=== PATIENT | male | born 1955 | race Asian ===

== ENCOUNTER 2016-10-11 13:41 | Inpatient (IN) | payer MEDICAID ==
[~2016-10-11] VITALS: Ht 172.7 cm; Wt 52.3 kg
[2016-10-11] VITALS (8 sets, daily range): BP systolic 133–164; BP diastolic 73–95
[2016-10-11 16:16] LABS: BLOOD UREA NITROGEN 18 mg/dL (7-18)
[2016-10-11 16:59] LABS: DIFF TOTAL CELLS COUNTED 100 CELL DIFF
[2016-10-11 17:01] LABS: ANISOCYTOSIS 2+; VERIFY COUNTS? YES
[2016-10-11 17:02] LABS: HYPOCHROMIA 1+; MICROCYTOSIS 1+; OVALOCYTES 1+; POIKILOCYTOSIS 1+; POLYCHROMASIA 1+
[2016-10-11] MEDS ORDERED: SODIUM CHLORIDE FLUSH 10ML SYR IVF PRN (17:30)
[2016-10-11] MEDS ORDERED: SODIUM CHLORIDE FLUSH 10ML SYR IVF ONE (17:30)
[2016-10-11] MEDS ORDERED: ENOXAPARIN 40 MG/0.4 ML SQ SCH (19:30)
[2016-10-11] MEDS ORDERED: TEMAZEPAM 15 MG CAPSULE PO PRN (19:30)
[2016-10-11] MEDS ORDERED: BISACODYL 10 MG SUPP PR PRN (19:30)
[2016-10-11] MEDS ORDERED: LABETALOL 5MG/ML, 20ML IV PRN (19:30)
[2016-10-12 00:44] VITALS: BP 161/85
[2016-10-12 02:00] VITALS: BP 168/66
[2016-10-12 02:12] VITALS: BP 163/87
[2016-10-12 05:14] LABS: BLOOD UREA NITROGEN 15 mg/dL (7-18)
[2016-10-12 05:43] LABS: DIFF TOTAL CELLS COUNTED 100 CELL DIFF
[2016-10-12 05:44] LABS: ANISOCYTOSIS 2+; MICROCYTOSIS 1+; VERIFY COUNTS? YES
[2016-10-12 05:45] LABS: HYPOCHROMIA 1+; POLYCHROMASIA 1+
[2016-10-12 05:46] LABS: OVALOCYTES 1+
[2016-10-12 07:34] VITALS: BP 152/84
[2016-10-12] MEDS: SENNA/DOCUSATE TABLET PO SCH (09:37)
[2016-10-12 13:19] VITALS: BP 158/82
[2016-10-12] MEDS ORDERED: GOLYTELY 4,000ML ORAL.SOL PO ONE (15:00)
[2016-10-12 20:06] VITALS: BP 166/96
[2016-10-13 04:22] VITALS: BP 158/90
[2016-10-13 05:08] LABS: BLOOD UREA NITROGEN 12 mg/dL (7-18)
[2016-10-13 05:53] LABS: DIFF TOTAL CELLS COUNTED 100 CELL DIFF
[2016-10-13 05:55] LABS: ANISOCYTOSIS 2+; HYPOCHROMIA 1+; MICROCYTOSIS 1+; POLYCHROMASIA 1+; VERIFY COUNTS? YES
[2016-10-13 05:59] LABS: OVALOCYTES 1+
[2016-10-13 07:51] VITALS: BP 157/88
[2016-10-13] MEDS: SENNA/DOCUSATE TABLET PO SCH (08:20)
[2016-10-13] MEDS ORDERED: GOLYTELY 4,000ML ORAL.SOL PO ONE (09:00)
[2016-10-13 12:58] VITALS: BP 154/88
[2016-10-13 20:12] VITALS: BP 153/91
[2016-10-14 02:49] VITALS: BP 166/91
[2016-10-14 06:26] LABS: BLOOD UREA NITROGEN 10 mg/dL (7-18)
[2016-10-14 06:52] LABS: ANISOCYTOSIS 2+; HYPOCHROMIA 1+; MICROCYTOSIS 1+; OVALOCYTES 1+; POLYCHROMASIA 1+
[2016-10-14 08:05] VITALS: BP 158/95
[2016-10-14] MEDS ORDERED: GOLYTELY 4,000ML ORAL.SOL PO ONE (09:30)
[2016-10-14] MEDS: SENNA/DOCUSATE TABLET PO SCH (10:02)
[2016-10-14 12:54] VITALS: BP 161/98
[2016-10-14 19:49] VITALS: BP 154/92
[2016-10-15 03:20] VITALS: BP 147/86
[2016-10-15 04:36] VITALS: BP 142/86
[2016-10-15 06:17] LABS: DIFF TOTAL CELLS COUNTED 100 CELL DIFF
[2016-10-15 06:26] LABS: ANISOCYTOSIS 2+; HYPOCHROMIA 1+; MICROCYTOSIS 1+; OVALOCYTES 1+; POLYCHROMASIA 1+; SCHISTOCYTES 1+; TARGET CELLS 1+; VERIFY COUNTS? YES
[2016-10-15 06:27] LABS: MONOS WITH VACUOLES 1+
[2016-10-15 06:28] LABS: GIANT PLATELETS 1+
[2016-10-15 07:17] VITALS: BP 170/89
[2016-10-15] MEDS: SENNA/DOCUSATE TABLET PO SCH (07:50)
[2016-10-15] MEDS ORDERED: FENTANYL PF 100 MCG/2ML ONE (08:45)
[2016-10-15] MEDS ORDERED: MIDAZOLAM 1 MG/ML, 5ML ONE (08:45)
[2016-10-15] MEDS ORDERED: EPINEPHRINE SYRINGE 0.1 MG/ML, 10ML ONE (09:52)
[2016-10-15 12:28] VITALS: BP 173/88
[2016-10-15 14:42] VITALS: BP 144/76
[2016-10-15 19:58] VITALS: BP 136/72
[2016-10-16 01:51] VITALS: BP 127/68
[2016-10-16 06:08] LABS: BLOOD UREA NITROGEN 9 mg/dL (7-18)
[2016-10-16 06:25] LABS: ANISOCYTOSIS 2+; HYPOCHROMIA 1+; MICROCYTOSIS 1+
[2016-10-16 06:26] LABS: OVALOCYTES 1+; POLYCHROMASIA 1+; SCHISTOCYTES 1+
[2016-10-16 08:01] VITALS: BP 154/80
[2016-10-16] MEDS: SENNA/DOCUSATE TABLET PO SCH (08:16)
[2016-10-16] MEDS ORDERED: FERR325T16 PO (11:03)
[2016-10-16] MEDS ORDERED: PANT40TA3 PO (11:03)
== END 2016-10-16 13:09 | disposition home or self-care (01) | DRG 378 ==
LOC: ED 17:15 → 3NE 17:16 → ED 17:58 → 3NE 18:20 → ED 18:20 → 3NE 18:48 → ED 18:48
PROVIDERS: ADMIT Hospitalist; ATTEND Hospitalist
PROC: 30233N1 Transfusion of Nonautologous Red Blood Cells into Peripheral Vein, Percutaneous Approach (ICD-10-PCS; 2016-10-11)
PROC: 0DJD8ZZ Inspection of Lower Intestinal Tract, Via Natural or Artificial Opening Endoscopic (ICD-10-PCS; 2016-10-15)
PROC: 3E0G8GC Introduction of Other Therapeutic Substance into Upper GI, Via Natural or Artificial Opening Endoscopic (ICD-10-PCS; 2016-10-15)
PROC: 0W3P8ZZ Control Bleeding in Gastrointestinal Tract, Via Natural or Artificial Opening Endoscopic (ICD-10-PCS; principal; 2016-10-15 09:00)
DX: K26.4 Chronic or unspecified duodenal ulcer with hemorrhage (principal); D62 Acute posthemorrhagic anemia; E44.0 Moderate protein-calorie malnutrition; Z68.1 Body mass index [BMI] 19.9 or less, adult; D50.9 Iron deficiency anemia, unspecified; I10 Essential (primary) hypertension; J43.9 Emphysema, unspecified; E86.1 Hypovolemia; K59.09 Other constipation; Z82.49 Family history of ischemic heart disease and other diseases of the circulatory system; Z87.891 Personal history of nicotine dependence
CPT/HCPCS: 36415; 74022; 80048; 82040; 82728; 83540; 83550; 84439; 84443; 85025; 85610; 85730; 86850; 86900; 86923; 88305; J2250; J3010; P9016

== ENCOUNTER 2018-09-09 06:55 | Emergency (ER) | payer MEDICAID ==
[~2018-09-09] VITALS: Ht 172.7 cm; Wt 51.0 kg
[~2018-09-09 06:55] MED LIST: FERR325T16 PO; PANT40TA3 PO
[2018-09-09 06:57] VITALS: BP 189/100
--- NOTE | 2018-09-09 07:08 | NUR ---
Pt ambulates to room from triage with steady gait and balance.
[2018-09-09] MEDS ORDERED: OXYMETAZOLINE NASAL SPRAY 0.05%,30ML ONE ×2 (07:19→08:20)
--- NOTE | 2018-09-09 07:30 | NUR ---
FIRST CONTACT WITH PT. ED PA at bedside. Pt c/o epistaxis beginning at 0100 today. Pt states history of anemia and htn. NADN. Pt AOX4, cms intact, pt able to maintain own secretions and air way. All safety measures in place. Noseclamp provided for pt. Medication provided for ED PA to administer to pt.
--- NOTE | 2018-09-09 08:16 | NUR ---
Pt connected to bread dumper. Pt has irregular rhythm. EKG done. Pt denies cp, sob, n/v/d, or diaphoresis. ED MD aware.
[2018-09-09] MEDS ORDERED: PHENYLEPHRINE 10 MG/ML ONE (08:20)
[2018-09-09] MEDS ORDERED: PHENYLEPHRINE NASAL 1%, 15ML SPRAY ONE (08:21)
--- NOTE | 2018-09-09 08:42 | NUR ---
TASK RN: Patient/Caregiver given discharge instructions and they have confirmed that they understand the instructions. Patient ambulatory with steady gait.
== END 2018-09-09 08:49 | disposition home or self-care (01) ==
LOC: ED 08:34
DX: R04.0 Epistaxis (principal); I49.3 Ventricular premature depolarization
CPT/HCPCS: 30901; 93005; 99284

== ENCOUNTER 2018-09-09 10:15 | Emergency (ER) | payer SELFPAY ==
[~2018-09-09] VITALS: Ht 172.7 cm; Wt 51.0 kg
--- NOTE | 2018-09-09 10:31 | NUR ---
TASK RN: PTAMBULATORY TO ROOM FROM [facility]. PT D/C EARLIER TODAY S/P STABILIZATION OF EPISTAXIS, PACKING PRESENT IN RIGHT NARE. PT RPTS BLEEDING FROM RIGHT NARE. NASAL CLAMP PLACED AND PT INSTRUCTED TO KEEP HEAD FORWARD. CALL LIGHT W/I REACH. AWAITING ED PROVIDER JABIER.
--- NOTE | 2018-09-09 10:57 | NUR ---
REPORT RECEIVED FROM RIAN STEELE. ASSUMED CARE OF PT. PT CURRENTLY SITTING IN CHAIR. IT APPEARS TO BLEEDING IS CURRENTLY CONTROLLED. CALL LIGHT WITHIN REACH. WILL CONT TO MONITOR PT.
--- NOTE | 2018-09-09 11:30 | NUR ---
PT MEDICATED ORDERED FOR ANXIETY. PT AO X 4. SKIN PWD. RESP EVEN AND EQAUL. BLEEDING APPEARS CONTROLLED WITH NEW PACKING. CALL LIGHT WITHIN REACH. WILL CONT TO MONITOR PT.
[2018-09-09 11:46] LABS: BASOPHILS # (AUTO) 0.08 x10^3/uL (0-0.1); BASOPHILS % (AUTO) 1 % (0-1); EOSINOPHILS # (AUTO) 0.06 x10^3/uL (0-0.4); EOSINOPHILS % (AUTO) 1 % (1-7); LYMPHOCYTES # (AUTO) 0.99 x10^3/uL (1-3.4); LYMPHOCYTES % (AUTO) 13 % (22-44); MD NO; MEAN CORPUSCULAR HEMOGLOBIN 31.4 pg (27.5-34.5); MEAN CORPUSCULAR HGB CONC 34.5 g/dL (33.2-36.2); MEAN CORPUSCULAR VOLUME 91.2 fL (81-97); MEAN PLATELET VOLUME 6.7 fL (7.4-10.4); MONOCYTES # (AUTO) 0.39 x10^3/uL (0.2-0.8); MONOCYTES % (AUTO) 5 % (2-9); NEUTROPHILS # (AUTO) 6.24 x10^3/uL (1.8-6.8); NEUTROPHILS % (AUTO) 80 % (42-75); PLATELET COUNT 273 x10^3/uL (130-400); RED BLOOD COUNT 4.31 x10^6/uL (4.38-5.82); RED CELL DISTRIBUTION WIDTH 12.6 % (9.4-14.8)
[2018-09-09 11:56] LABS: ALANINE AMINOTRANSFERASE 29 U/L (12-78); ALBUMIN 3.2 g/dL (3.4-5.0); ANION GAP 4 mmol/L (5-15); CALCIUM 8.5 mg/dL (8.5-10.1); CHLORIDE 105 mmol/L (98-107); CREATININE 0.62 mg/dL (0.7-1.3)
[2018-09-09 11:57] LABS: INTERNATIONAL NORMALIZED RATIO 1.13 (0.93-1.1); PROTHROMBIN TIME 11.8 Seconds (9.6-11.5)
[2018-09-09 11:58] LABS: ALKALINE PHOSPHATASE 56 U/L (45-117); BILIRUBIN,TOTAL 0.9 mg/dL (0.2-1.0); TOTAL PROTEIN 6.8 g/dL (6.4-8.2)
--- NOTE | 2018-09-09 12:30 | NUR ---
PT CURRENTLY SITTING IN CHAIR. NAD NOTED. SKIN WARM AND DRY. RESP EVEN AND UNLABORED. PT AO X 4. PT AWARE WE ARE WAITING FOR IMAGING. PT DENIES OTHER NEEDS AT THIS TIME. CALL LIGHT WITHIN REACH. WILL CONT TO MONITOR PT.
--- NOTE | 2018-09-09 13:20 | NUR ---
PT CURRENTLY SITTING IN CHAIR. NAD NOTED. SKIN WARM AND DRY, APPROPRIATE FOR ETHNICITY. PT AO X 4. RESP EVEN AND UNLABORED. PT AWARE WE ARE WAITING FOR CT SCAN RESUTLS. PT DENIES OTHER NEEDS AT THIS TIME. CALL LIGHT WITHIN REACH. WILL CONT TO MONITOR PT.
[2018-09-09 13:30] VITALS: BP 144/77
== END 2018-09-09 13:49 | disposition home or self-care (01) ==
LOC: ED 10:56
DX: R04.0 Epistaxis (principal)
CPT/HCPCS: 30901; 36415; 70450; 80053; 85025; 85610; 85730; 99284

== ENCOUNTER 2018-12-06 16:01 | Inpatient (IN) | payer BC, OTHER ==
[~2018-12-06] VITALS: Ht 172.7 cm; Wt 53.5 kg
--- NOTE | 2018-12-06 16:22 | NUR ---
PT WHEELED BY TECH TO ROOM 13 BY MISTAKE. PT RE-ROOMED INTO 3.
[2018-12-06] MEDS ORDERED: SODIUM CHLORIDE FLUSH 10ML SYR IVF ONE (16:30)
[2018-12-06] MEDS ORDERED: FERR325T23 PO (16:42)
[2018-12-06 16:43] LABS: BASOPHILS # (AUTO) 0.05 x10^3/uL (0-0.1); BASOPHILS % (AUTO) 1 % (0-1); EOSINOPHILS # (AUTO) 0.11 x10^3/uL (0-0.4); EOSINOPHILS % (AUTO) 2 % (1-7); LYMPHOCYTES # (AUTO) 0.87 x10^3/uL (1-3.4); LYMPHOCYTES % (AUTO) 15 % (22-44); MD NO; MEAN CORPUSCULAR HEMOGLOBIN 31.1 pg (27.5-34.5); MEAN CORPUSCULAR HGB CONC 32.7 g/dL (33.2-36.2); MEAN CORPUSCULAR VOLUME 95.2 fL (81-97); MEAN PLATELET VOLUME 6.7 fL (7.4-10.4); MONOCYTES # (AUTO) 0.51 x10^3/uL (0.2-0.8); MONOCYTES % (AUTO) 9 % (2-9); NEUTROPHILS # (AUTO) 4.31 x10^3/uL (1.8-6.8); NEUTROPHILS % (AUTO) 74 % (42-75); PLATELET COUNT 290 x10^3/uL (130-400); RED BLOOD COUNT 4.62 x10^6/uL (4.38-5.82); RED CELL DISTRIBUTION WIDTH 15.2 % (9.4-14.8)
--- NOTE | 2018-12-06 16:51 | NUR ---
PT TRANSFERRED FROM ROOM 13 TO ROOM 3 WITH TECH ON [place]. PT REPORTS SOB AND SWELLING TO BILAT FEET. PT SPEAKING 3-4 WORD SENTENCES INITALLY IN TRIAGE, LONGER SENTENCES NOW THAT PT HAS BEEN ON 2 L NC O2. PT TACHYCARDIC AND HYPERTENSIVE. AWARE. DRESSED IN GOWN AND ATTACHED TO MONITOR. PIV ESTABLISHED AND LABS DRAWN BY THIS RN.
[2018-12-06 16:55] LABS: ALBUMIN 3.1 g/dL (3.4-5.0); ANION GAP 4 mmol/L (5-15); CALCIUM 8.4 mg/dL (8.5-10.1); CHLORIDE 100 mmol/L (98-107); CREATININE 0.92 mg/dL (0.7-1.3)
[2018-12-06 16:59] LABS: TROPONIN I 0.034 ng/mL (0.000-0.045)
--- NOTE | 2018-12-06 17:09 | NUR ---
TASK RN: Pt requesting restroom. Provided pt urinal. Pt appreciative. NADN. Bedrails up x 2 for safety measurs. Call light within reach. No other needs expressed a tthis time.
[2018-12-06] MEDS ORDERED: ALBUTEROL/IPRATROPIUM 2.5MG/0.5MG, 3 ML ONE (17:11)
[2018-12-06] MEDS ORDERED: ALBUTEROL/IPRATROPIUM 2.5MG/0.5MG, 3 ML NPPB ONE (17:30)
--- NOTE | 2018-12-06 17:30 | NUR ---
PT RESTING IN [facility]. RT BREATHING TX COMPLETED. VSS, AAOX 4. GIVEN URINAL PER PT REQUEST.
--- NOTE | 2018-12-06 17:44 | NUR ---
PT TO CT.
--- NOTE | 2018-12-06 18:07 | NUR ---
PT BACK FROM CT.
--- NOTE | 2018-12-06 18:20 | NUR ---
PT RESTING IN [facility], NAD, FALL PRECAUTIONS IN PLACE.
[2018-12-06] MEDS ORDERED: ACETAMINOPHEN 325 MG TABLET PO PRN (18:30)
[2018-12-06] MEDS ORDERED: CALCIUM GLUCONATE 9.2 MEQ in SODIUM CHLORIDE 0.9% 100 ML IV ONE (18:30)
[2018-12-06] MEDS ORDERED: FUROSEMIDE 40 MG/4 ML IVPush ONE (18:30)
[2018-12-06] MEDS ORDERED: NITROGLYCERIN OINT 2%, 1GM TP ONE ×2 (18:30→19:15)
[2018-12-06] MEDS ORDERED: ONDANSETRON 2MG/ML, 2ML IVPush PRN (18:30)
--- NOTE | 2018-12-06 18:40 | NUR ---
[facility] AT BEDSIDE FOR EXAM.
[2018-12-06] MEDS ORDERED: ALBUTEROL/IPRATROPIUM 2.5MG/0.5MG, 3 ML HHN PRN (19:00)
--- NOTE | 2018-12-06 19:04 | NUR ---
REPORT GIVEN TO ANGEL MODI.
[2018-12-06] MEDS ORDERED: FUROSEMIDE 40 MG/4 ML ONE (19:15)
[2018-12-06] MEDS ORDERED: hydrALAzine 20 MG/ML, 1ML IV PRN (20:00)
[2018-12-06 20:10] VITALS: BP 176/120
[2018-12-06 20:36] VITALS: BP 153/83
[2018-12-07 00:40] LABS: TROPONIN I 0.042 ng/mL (0.000-0.045)
[2018-12-07 01:33] VITALS: BP 155/92
[2018-12-07 05:45] LABS: BASOPHILS # (AUTO) 0.06 x10^3/uL (0-0.1); BASOPHILS % (AUTO) 1 % (0-1); EOSINOPHILS # (AUTO) 0.16 x10^3/uL (0-0.4); EOSINOPHILS % (AUTO) 3 % (1-7); LYMPHOCYTES # (AUTO) 1.22 x10^3/uL (1-3.4); LYMPHOCYTES % (AUTO) 19 % (22-44); MD NO; MEAN CORPUSCULAR HEMOGLOBIN 31.4 pg (27.5-34.5); MEAN CORPUSCULAR HGB CONC 32.9 g/dL (33.2-36.2); MEAN CORPUSCULAR VOLUME 95.4 fL (81-97); MEAN PLATELET VOLUME 6.8 fL (7.4-10.4); MONOCYTES # (AUTO) 0.56 x10^3/uL (0.2-0.8); MONOCYTES % (AUTO) 9 % (2-9); NEUTROPHILS # (AUTO) 4.26 x10^3/uL (1.8-6.8); NEUTROPHILS % (AUTO) 68 % (42-75); PLATELET COUNT 269 x10^3/uL (130-400); RED BLOOD COUNT 4.88 x10^6/uL (4.38-5.82); RED CELL DISTRIBUTION WIDTH 15.4 % (9.4-14.8)
[2018-12-07 05:53] LABS: ANION GAP 5 mmol/L (5-15); CHLORIDE 101 mmol/L (98-107); CREATININE 0.77 mg/dL (0.7-1.3)
[2018-12-07 05:57] LABS: TROPONIN I 0.046 ng/mL (0.000-0.045)
[2018-12-07 07:55] VITALS: BP 146/86
[2018-12-07 08:32] VITALS: BP 146/91
[2018-12-07 13:29] VITALS: BP 141/83
[2018-12-07] MEDS: FUROSEMIDE 40 MG/4 ML IV SCH (16:25)
[2018-12-07 19:15] VITALS: BP 131/82
[2018-12-08 02:24] VITALS: BP 137/89
[2018-12-08 05:09] LABS: BASOPHILS # (AUTO) 0.04 x10^3/uL (0-0.1); BASOPHILS % (AUTO) 1 % (0-1); EOSINOPHILS # (AUTO) 0.19 x10^3/uL (0-0.4); EOSINOPHILS % (AUTO) 3 % (1-7); LYMPHOCYTES # (AUTO) 1.21 x10^3/uL (1-3.4); LYMPHOCYTES % (AUTO) 17 % (22-44); MD NO; MEAN CORPUSCULAR HGB CONC 32.1 g/dL (33.2-36.2); MEAN CORPUSCULAR VOLUME 96.5 fL (81-97); MEAN PLATELET VOLUME 6.8 fL (7.4-10.4); MONOCYTES % (AUTO) 8 % (2-9); NEUTROPHILS # (AUTO) 5.25 x10^3/uL (1.8-6.8); NEUTROPHILS % (AUTO) 72 % (42-75); PLATELET COUNT 258 x10^3/uL (130-400); RED BLOOD COUNT 4.68 x10^6/uL (4.38-5.82); RED CELL DISTRIBUTION WIDTH 15.5 % (9.4-14.8)
[2018-12-08 05:30] LABS: ANION GAP 5 mmol/L (5-15); CALCIUM 8.7 mg/dL (8.5-10.1); CHLORIDE 100 mmol/L (98-107); CREATININE 1.07 mg/dL (0.7-1.3)
[2018-12-08 07:36] VITALS: BP 124/81
[2018-12-08] MEDS: FUROSEMIDE 40 MG/4 ML IV SCH (07:43)
[2018-12-08] MEDS ORDERED: AZITHROMYCIN 500 MG TABLET PO SCH (09:00)
[2018-12-08] MEDS: methylPREDNISolone SOD SUCC 125 MG/2 ML IVPush SCH ×2 (09:26→14:59)
[2018-12-08] MEDS ORDERED: TIOT18CA INH (11:12)
[2018-12-08] MEDS ORDERED: IPRA3AMP30 INH (11:12)
[2018-12-08] MEDS ORDERED: FLUT1DIS3 INH (11:12)
[2018-12-08] MEDS ORDERED: FURO-92 PO (11:12)
[2018-12-08] MEDS ORDERED: AZIT500T5 PO (11:12)
[2018-12-08] MEDS ORDERED: POTA20PA25 PO (11:12)
[2018-12-08] MEDS ORDERED: PRED10TA PO (11:12)
[2018-12-08 15:00] VITALS: BP 150/95
== END 2018-12-08 17:23 | disposition home or self-care (01) | DRG 314 ==
LOC: ED 18:32 → EDIP 19:47 → 5SO 19:51
PROVIDERS: ADMIT Internal Medicine; ATTEND Internal Medicine
DX: I31.3 Pericardial effusion (noninflammatory) (principal); I26.09 Other pulmonary embolism with acute cor pulmonale; I50.41 Acute combined systolic (congestive) and diastolic (congestive) heart failure; J96.01 Acute respiratory failure with hypoxia; R64 Cachexia; Z68.1 Body mass index [BMI] 19.9 or less, adult; J91.8 Pleural effusion in other conditions classified elsewhere; I11.0 Hypertensive heart disease with heart failure; E87.5 Hyperkalemia; K59.09 Other constipation; I07.1 Rheumatic tricuspid insufficiency; J43.9 Emphysema, unspecified; Z87.891 Personal history of nicotine dependence
CPT/HCPCS: 36415; 36600; J7620; 71045; 71275; 80048; 82040; 82803; 83735; 83880; 84484; 85025; 85379; 93005; 93308; 93321; 93325; 93970; 94640; 96374; 99285; G0378; J0610; J1940; J0360; J2930